=== PATIENT | female | born 1995 | race African-American/Black ===

== ENCOUNTER 2017-01-04 21:27 | Emergency (ER) | payer OTHER ==
[2017-01-04] MEDS ORDERED: Lidocaine 1% 20 ML MDV ONE (21:41)
[2017-01-04] MEDS ORDERED: cefTRIAXone\\ROCEPHIN 1 GM VIAL ONE (21:41)
[2017-01-04] MEDS ORDERED: Azithromycin 250 MG TAB ONE (21:45)
[2017-01-04] MEDS ORDERED: HYDROcodone/Acetaminophen 10/325 mg Tablet ONE (21:45)
[2017-01-04 22:09] LABS: Bilirubin Negative (Negative); Blood, Urine Negative (Negative); Glucose, Urine (Dipstick) Negative (Negative); Ketone, Urine Trace mg/dL (Negative); Nitrite Negative (Negative); Protein, Urine (Dipstick) Negative (Neg-Trace); Urobilinogen 0.2 mg/dL (0.2-1.0)
[2017-01-04 22:10] LABS: Bacteria/HPF 2+ HPF (None Seen); RBC/HPF None Seen HPF (0-3)
== END 2017-01-04 22:28 | disposition home or self-care (01) ==
LOC: NAV ERS 21:27
DX: N39.0 Urinary tract infection, site not specified (principal); J45.909 Unspecified asthma, uncomplicated
CPT/HCPCS: 81003; 81015; 81025; 96372; J0696; J2001

== ENCOUNTER 2017-02-20 22:34 | Emergency (ER) | payer OTHER ==
[2017-02-20] MEDS ORDERED: Ibuprofen 800 MG TAB ONE (22:51)
== END 2017-02-20 23:16 | disposition home or self-care (01) ==
LOC: NAV ERS 22:34
DX: S50.311A Abrasion of right elbow, initial encounter (principal); R68.84 Jaw pain; J45.909 Unspecified asthma, uncomplicated; V80.010A Animal-rider injured by fall from or being thrown from horse in noncollision accident, initial encounter
CPT/HCPCS: 99283

== ENCOUNTER 2017-04-10 00:37 | Emergency (ER) | payer OTHER ==
[2017-04-10] MEDS ORDERED: Ibuprofen 800 MG TAB ONE (01:14)
== END 2017-04-10 01:45 | disposition home or self-care (01) ==
LOC: NAV ERS 00:37
DX: S39.82XA Other specified injuries of lower back, initial encounter (principal); G44.309 Post-traumatic headache, unspecified, not intractable; J45.909 Unspecified asthma, uncomplicated; Z79.899 Other long term (current) drug therapy; V49.50XA Passenger injured in collision with unspecified motor vehicles in traffic accident, initial encounter
CPT/HCPCS: 99283

== ENCOUNTER 2020-02-29 00:40 | Emergency (ER) | payer MEDICAID, SELFPAY ==
[2020-02-29] MEDS ORDERED: Ondansetron ODT 4 MG TAB ONE (01:15)
[2020-02-29] MEDS ORDERED: Dicyclomine 20 MG TAB ONE (01:26)
[2020-02-29 01:33] LABS: Bilirubin Negative (Negative); Blood, Urine Negative (Negative); Clarity Cloudy (Clear); Glucose, Urine (Dipstick) Negative (Negative); Leukocyte Small (Negative); Nitrite Negative (Negative); Protein, Urine (Dipstick) Negative (Neg-Trace); Urobilinogen 0.2 mg/dL (Less than 2)
[2020-02-29 01:34] LABS: Pregnancy Test - Urine (BHCG) Negative (Negative); Pregu Control Background? CLEAR/WHITE (CLR/WHITE); Pregu Control Bar Appear? YES (CONTROL BAR); Specific Gravity 1.025 (1.002-1.036)
[2020-02-29 01:37] LABS: RBC/HPF None Seen HPF (0-3)
[2020-02-29 01:38] LABS: Bacteria/HPF 2+ HPF (None Seen)
== END 2020-02-29 02:14 | disposition home or self-care (01) ==
LOC: NAV ERS 00:40
DX: A08.4 Viral intestinal infection, unspecified (principal); J45.909 Unspecified asthma, uncomplicated; R11.0 Nausea
CPT/HCPCS: 81003; 81015; 81025; 99284; J0500; Q0162